=== PATIENT | male | born 1985 | race Two or more races ===

== ENCOUNTER 2017-10-14 15:48 | Emergency (ER) | payer OTHER | END 2017-10-14 18:28 | disposition left against medical advice (07) | LOC: M ED 15:48 | DX: Z53.29 Procedure and treatment not carried out because of patient's decision for other reasons (principal) ==

== ENCOUNTER → 2017-10-18 | Outpatient (REF) | payer OTHER ==
[2017-10-18 12:02] LABS: BASO # 0.1 10^3/uL (0.0-0.2); BASO % 0.7 % (0.0-1.0); EOS # 0.3 10^3/uL (0.0-0.50); EOS % 3.3 % (0.0-3.0); HEMATOCRIT 40.3 % (42.0-52.0); HEMOGLOBIN 13.9 g/dl (14.0-18.0); IMMATURE GRANULOCYTE % 0.2 % (0-0); LYMPH # 3.8 10^3/uL (1.5-4.5); LYMPH % 38.6 % (24.0-44.0); MEAN CORPUSCULAR HEMOGLOBIN 32.4 pg (27.0-33.0); MEAN CORPUSCULAR HGB CONC 34.5 g/dl (32.0-36.5); MEAN CORPUSCULAR VOLUME 93.9 fl (80.0-96.0); MONO # 1.1 10^3/uL (0.0-0.8); MONO % 11.6 % (0.0-5.0); NEUTROPHILS # 4.5 10^3/uL (1.8-7.7); NEUTROPHILS % 45.6 % (36.0-66.0); PLATELET COUNT, AUTOMATED 230 10^3/uL (150-450); RED BLOOD COUNT 4.29 10^6/uL (4.30-6.10); RED CELL DISTRIBUTION WIDTH 12.6 % (11.5-14.5); WHITE BLOOD COUNT 9.8 10^3/uL (4.0-10.0)
[2017-10-18 12:27] LABS: ALBUMIN 3.9 GM/DL (3.2-5.2); ALKALINE PHOSPHATASE 74 U/L (45-117); ALT/SGPT 14 U/L (12-78); ANION GAP 8 MEQ/L (8-16); AST/SGOT 13 U/L (7-37); BILIRUBIN,TOTAL 0.6 MG/DL (0.2-1.0); BLOOD UREA NITROGEN 10 MG/DL (7-18); CALCIUM LEVEL 8.4 MG/DL (8.5-10.1); CARBON DIOXIDE LEVEL 29 MEQ/L (21-32); CHLORIDE LEVEL 106 MEQ/L (98-107); CHOLESTEROL LEVEL 192 MG/DL (<200); CHOLESTEROL RISK RATIO 3.147 (<5); GLOMERULAR FILTRATION RATE > 60.0 (>60); GLUCOSE, FASTING 84 MG/DL (70-105); HDL CHOLESTEROL 61 MG/DL (>40); NON-HDL-C 131 MG/DL; SODIUM LEVEL 143 MEQ/L (136-145); TOTAL PROTEIN 6.9 GM/DL (6.4-8.2); TRIGLYCERIDES LEVEL 95 MG/DL (<150)
== END ==
LOC: M SFHCPLAZ 10:12
DX: Z00.00 Encounter for general adult medical examination without abnormal findings (principal); Z13.220 Encounter for screening for lipoid disorders

== ENCOUNTER → 2018-05-02 | Outpatient (REF) | payer OTHER ==
[2018-05-02 16:18] LABS: HEMATOCRIT 41.6 % (42.0-52.0); HEMOGLOBIN 14.8 g/dl (13.5-17.5); MEAN CORPUSCULAR HEMOGLOBIN 32.8 pg (27.0-33.0); MEAN CORPUSCULAR HGB CONC 35.6 g/dl (32.0-36.5); MEAN CORPUSCULAR VOLUME 92.2 fl (80.0-96.0); PLATELET COUNT, AUTOMATED 254 10^3/uL (150-450); RED BLOOD COUNT 4.51 10^6/uL (4.30-6.10); RED CELL DISTRIBUTION WIDTH 12.3 % (11.5-14.5); WHITE BLOOD COUNT 8.3 10^3/uL (4.0-10.0)
== END ==
LOC: M SFHCPLAZ 15:11
DX: D64.9 Anemia, unspecified (principal)

== ENCOUNTER → 2018-06-20 | Outpatient (CLI) | payer OTHER | LOC: M WUC 10:21 | DX: M25.561 Pain in right knee (principal); M25.512 Pain in left shoulder | CPT/HCPCS: 73030 ==

== ENCOUNTER → 2018-06-20 | Outpatient (REF) | payer OTHER ==
[2018-06-20 11:10] LABS: RHEUMATOID FACTOR QUANT < 10.0 IU/ML (<15.0)
[2018-06-20 11:10] LABS: C REACTIVE PROTEIN QUANTITATIV < 0.30 MG/DL (0.00-0.30)
[2018-06-20 11:34] LABS: ERYTHROCYTE SEDIMENTATION RATE 2 mm/hr (0-15)
[2018-06-21 12:59] LABS: ANTINUCLEAR ANTIBODIES DIRECT Negative (Negative)
[2018-06-23 00:06] LABS: CYCLIC CITRULLINATED PEPTIDE 47 units (0-19)
== END ==
LOC: M SFHCPLAZ 08:30
DX: M25.50 Pain in unspecified joint (principal)

== ENCOUNTER 2018-08-28 16:17 | Emergency (ER) | payer OTHER ==
[2018-08-28] MEDS: AUGMENTIN 875 MG TAB PO (17:43)
[2018-08-28] MEDS: NAPROXEN 250 MG TAB PO (17:44)
== END 2018-08-28 17:50 | disposition home or self-care (01) ==
LOC: M ED 16:17
DX: J02.9 Acute pharyngitis, unspecified (principal); J01.90 Acute sinusitis, unspecified
CPT/HCPCS: 87880

== ENCOUNTER → 2019-01-29 | Outpatient (CLI) | payer MEDICAID, OTHER ==
[~2019-01-29] MED LIST: AUGM875T28 PO; NAPR500T6; TIZANIDINE
--- NOTE | 2019-01-30 14:33 | REP ---
REASON: Testicular pain. PRIORS: None. The right testicle measures 5.1 x 2.2 x 3.2 cm and the left measures 5.2 x 2.1 x 3.3 cm. In the upper portion of the right testicle, there is an intratesticular calcification which measures 3 mm. There is no mass seen in association with this calcification. There is also an extra testicular calcification in the scrotal wall, which measures 4 mm. The vascular pattern is normal bilaterally. There are small bilateral hydroceles and an incidental 3 mm sized right-sided spermatocele. The right testicle RI is 0.56 and the left is 0.64. There is no evidence of a varicocele on either side. IMPRESSION: 1. Right-sided calcifications as described above. These could be secondary to old trauma. Since patient complained of right-sided pain, consider followup. 2. Other findings as described above. Electronically Signed by Gonzalo Glass DO 01/30/2019 04:37 P
== END ==
LOC: M RAD 17:08
PROVIDERS: ATTEND Family Medicine
DX: N50.811 Right testicular pain (principal); N50.89 Other specified disorders of the male genital organs

== ENCOUNTER 2019-04-15 10:04 | Emergency (ER) | payer MEDICAID, OTHER ==
[~2019-04-15] VITALS: Ht 182.9 cm; Wt 63.6 kg
[2019-04-15] MEDS ORDERED: ERYT1OIN26 (10:13)
[2019-04-15] MEDS ORDERED: NS 1,000 ML IV ONE (11:15)
[2019-04-15 11:40] LABS: BASO # 0.1 10^3/uL (0.0-0.2); EOS % 0.2 % (0.0-3.0); HEMATOCRIT 46.1 % (42.0-52.0); HEMOGLOBIN 16.2 g/dl (13.5-17.5); LYMPH # 2.1 10^3/uL (1.5-4.5); LYMPH % 23.6 % (24.0-44.0); MEAN CORPUSCULAR HEMOGLOBIN 32.5 pg (27.0-33.0); MEAN CORPUSCULAR HGB CONC 35.1 g/dl (32.0-36.5); MEAN CORPUSCULAR VOLUME 92.4 fl (80.0-96.0); MONO # 0.7 10^3/uL (0.0-0.8); MONO % 8.4 % (0.0-5.0); NEUTROPHILS # 5.8 10^3/uL (1.8-7.7); NEUTROPHILS % 66.5 % (36.0-66.0); PLATELET COUNT, AUTOMATED 261 10^3/uL (150-450); RED BLOOD COUNT 4.99 10^6/uL (4.30-6.10); WHITE BLOOD COUNT 8.7 10^3/uL (4.0-10.0)
[2019-04-15 12:25] LABS: ALBUMIN 4.5 GM/DL (3.2-5.2); ALT/SGPT 30 U/L (12-78); BILIRUBIN,TOTAL 0.7 MG/DL (0.2-1.0); BLOOD UREA NITROGEN 6 MG/DL (7-18); CALCIUM LEVEL 9.3 MG/DL (8.5-10.1); CARBON DIOXIDE LEVEL 21 MEQ/L (21-32); CHLORIDE LEVEL 100 MEQ/L (98-107); ETHYL ALCOHOL (ETHANOL) 0.015 % (0.000-0.010); GLOMERULAR FILTRATION RATE > 60.0 (>60); GLUCOSE, FASTING 87 MG/DL (70-100); POTASSIUM SERUM 3.8 MEQ/L (3.5-5.1); SODIUM LEVEL 134 MEQ/L (136-145); TOTAL PROTEIN 8.2 GM/DL (6.4-8.2)
[2019-04-15 13:29] VITALS: BP 140/90
--- NOTE | 2019-04-15 19:17 | ECGEPIP ---
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
== END 2019-04-15 13:37 | disposition home or self-care (01) ==
LOC: M ED 10:04
DX: R42 Dizziness and giddiness (principal); R25.1 Tremor, unspecified; F10.10 Alcohol abuse, uncomplicated
CPT/HCPCS: 80053; 85025; 93005; 96360; 99284; G0480

== ENCOUNTER → 2019-04-24 | Outpatient (REF) | payer OTHER ==
[~2019-04-24] MED LIST changes: +ERYT1OIN26
[2019-04-24 11:55] LABS: HEMATOCRIT 43.8 % (42.0-52.0); MEAN CORPUSCULAR HEMOGLOBIN 32.7 pg (27.0-33.0); MEAN CORPUSCULAR HGB CONC 34.2 g/dl (32.0-36.5); MEAN CORPUSCULAR VOLUME 95.4 fl (80.0-96.0); PLATELET COUNT, AUTOMATED 255 10^3/uL (150-450); RED BLOOD COUNT 4.59 10^6/uL (4.30-6.10); WHITE BLOOD COUNT 6.1 10^3/uL (4.0-10.0)
[2019-04-24 12:14] LABS: ALT/SGPT 23 U/L (12-78); BILIRUBIN,TOTAL 0.5 MG/DL (0.2-1.0); BLOOD UREA NITROGEN 8 MG/DL (7-18); CALCIUM LEVEL 8.8 MG/DL (8.5-10.1); CARBON DIOXIDE LEVEL 29 MEQ/L (21-32); CHLORIDE LEVEL 107 MEQ/L (98-107); CHOLESTEROL LEVEL 183 MG/DL (<200); CHOLESTEROL RISK RATIO 2.079 (<5); CREATININE FOR GFR 0.86 MG/DL (0.70-1.30); GLOMERULAR FILTRATION RATE > 60.0 (>60); GLUCOSE, FASTING 81 MG/DL (70-100); HDL CHOLESTEROL 88 MG/DL (>40); LDL CHOLESTEROL 80 MG/DL (<100); NON-HDL-C 95 MG/DL; POTASSIUM SERUM 4.2 MEQ/L (3.5-5.1); SODIUM LEVEL 141 MEQ/L (136-145); TOTAL PROTEIN 7.2 GM/DL (6.4-8.2); TRIGLYCERIDES LEVEL 75 MG/DL (<150)
== END ==
LOC: M SFHCPLAZ 08:54
PROVIDERS: ATTEND Family Medicine
DX: D64.9 Anemia, unspecified (principal); E78.5 Hyperlipidemia, unspecified

== ENCOUNTER → 2019-04-28 | Outpatient (CLI) | payer OTHER ==
--- NOTE | 2019-04-28 09:44 | REP ---
Clinical: EtOH abuse. Technique: Real time babcock scale ultrasound examination using curved array transducer. Findings: Liver and pancreas are normal in contour, size, echogenicity without focal hepatic or pancreatic lesion identified. Gallbladder is normal and without gallstones, wall thickening, or pericholecystic fluid. No biliary ductal dilatation is appreciated the common bile duct measures 2 mm diameter. The right kidney is normal in reniform shape without hydronephrosis and measures 11.8 x 4.2 x 4.2 cm. No ascites in the visualized right upper quadrant. Impression: Normal liver and right upper quadrant ultrasound.
== END ==
LOC: M WHC 08:42
PROVIDERS: ATTEND Family Medicine
DX: Z87.898 Personal history of other specified conditions (principal)

== ENCOUNTER 2019-10-03 10:58 | Emergency (ER) | payer OTHER ==
[~2019-10-03] VITALS: Ht 182.9 cm; Wt 68.2 kg
[2019-10-03] MEDS ORDERED: FLUO20CA19 PO (11:10)
[2019-10-03 12:54] VITALS: BP 152/83
[2019-10-03] MEDS ORDERED: KEFL500C17 PO (13:01)
== END 2019-10-03 13:26 | disposition home or self-care (01) ==
LOC: M ED 10:58 → EDBD 10:58 → M ED 13:26
DX: S61.101A Unspecified open wound of right thumb with damage to nail, initial encounter (principal); W26.9XXA Contact with unspecified sharp object(s), initial encounter; Y92.099 Unspecified place in other non-institutional residence as the place of occurrence of the external cause; Y93.9 Activity, unspecified; Y99.9 Unspecified external cause status; F41.9 Anxiety disorder, unspecified; F17.290 Nicotine dependence, other tobacco product, uncomplicated; Z79.899 Other long term (current) drug therapy

== ENCOUNTER 2020-06-12 11:34 | Emergency (ER) | payer OTHER ==
[~2020-06-12] VITALS: Ht 175.3 cm; Wt 66.3 kg
[2020-06-12 11:34] VITALS: BP 128/78
[~2020-06-12 11:34] MED LIST changes: -ERYT1OIN26; +ERYT5OIN25; +FLUO20CA22 PO; +KEFL500C17 PO
[2020-06-12] MEDS ORDERED: CLON1TAB8 PO (11:42)
[2020-06-12] MEDS ORDERED: PSEU30TA21 PO (11:42)
[2020-06-12] MEDS ORDERED: VENL50TA2 PO (11:42)
[2020-06-12] MEDS ORDERED: BUSP10TA PO (11:42)
[2020-06-12] MEDS ORDERED: FLUTISP INH (11:42)
[2020-06-12] MEDS ORDERED: OFLOSO OTIC (11:51)
== END 2020-06-12 12:03 | disposition home or self-care (01) ==
LOC: M ED 11:34
DX: H66.91 Otitis media, unspecified, right ear (principal); H60.91 Unspecified otitis externa, right ear; Z96.22 Myringotomy tube(s) status; F17.200 Nicotine dependence, unspecified, uncomplicated; Z79.899 Other long term (current) drug therapy

== ENCOUNTER → 2020-06-14 | Outpatient (REF) | payer OTHER ==
[~2020-06-14] MED LIST changes: +BUSP10TA PO; +CLON1TAB8 PO; +FLUTISP INH; +OFLOSO OTIC; +PSEU30TA21 PO; +VENL50TA2 PO
== END ==
LOC: M LAB REF 15:02
PROVIDERS: ATTEND Otolaryngology
DX: H65.23 Chronic serous otitis media, bilateral (principal)

== ENCOUNTER 2020-08-23 08:51 | Emergency (ER) | payer OTHER ==
[~2020-08-23] VITALS: Ht 182.9 cm; Wt 64.1 kg
[2020-08-23] MEDS ORDERED: VENL75CA47 PO (09:03)
[2020-08-23] MEDS ORDERED: ACETAMINOPHEN 500 MG TAB PO ONE (09:30)
--- NOTE | 2020-08-23 10:10 | REP ---
INDICATION: rib tenderness following injury, L lateral worst, prior PTX COMPARISON: None. TECHNIQUE: Frontal view of the chest with multiple views of the right and left hemithorax. (5 total views). FINDINGS: Frontal view of the chest demonstrates no acute cardiopulmonary process, contusion, effusion, or pneumothorax. Multiple views of the bilateral milton thoraces demonstrates no acute rib fracture/injury or pathology. IMPRESSION: Normal rib series. <Electronically signed by Carlos Rodriguez > 08/23/20 [id number]
[2020-08-23 10:27] VITALS: BP 137/90
== END 2020-08-23 10:52 | disposition home or self-care (01) ==
LOC: M ED 08:51
DX: S29.011A Strain of muscle and tendon of front wall of thorax, initial encounter (principal); R07.82 Intercostal pain; W19.XXXA Unspecified fall, initial encounter; Y92.099 Unspecified place in other non-institutional residence as the place of occurrence of the external cause; Y93.89 Activity, other specified; Y99.9 Unspecified external cause status; I10 Essential (primary) hypertension; F41.9 Anxiety disorder, unspecified; F32.9 Major depressive disorder, single episode, unspecified; F17.200 Nicotine dependence, unspecified, uncomplicated; F12.10 Cannabis abuse, uncomplicated; Z87.81 Personal history of (healed) traumatic fracture; Z87.09 Personal history of other diseases of the respiratory system; Z79.899 Other long term (current) drug therapy

== ENCOUNTER 2020-11-27 17:01 | Emergency (ER) | payer OTHER ==
[~2020-11-27] VITALS: Ht 182.9 cm; Wt 66.1 kg
[~2020-11-27 17:01] MED LIST changes: +VENL75CA47 PO
[2020-11-27 17:02] VITALS: BP 120/81
[2020-11-27] MEDS ORDERED: ANUC25SU PR (17:16)
[2020-11-27] MEDS ORDERED: EQ H1PAD EX (17:18)
[2020-11-27] MEDS ORDERED: COLA100C5 PO (17:19)
[2020-11-29] MEDS ORDERED: HYDR-3713 PO (17:36)
== END 2020-11-27 17:33 | disposition home or self-care (01) ==
LOC: M ED 17:01
DX: K64.4 Residual hemorrhoidal skin tags (principal); Z87.891 Personal history of nicotine dependence; Z79.899 Other long term (current) drug therapy

== ENCOUNTER 2021-02-25 09:37 | Emergency (ER) | payer OTHER ==
[~2021-02-25] VITALS: Ht 177.8 cm; Wt 63.6 kg
[~2021-02-25 09:37] MED LIST changes: +ANUC25SU PR; +COLA100C5 PO; +EQ H1PAD EX; +HYDR-3713 PO
[2021-02-25] MEDS ORDERED: KETOROLAC 30 MG/ML 1ML VIAL IM ONE (10:15)
--- NOTE | 2021-02-25 10:53 | REP ---
INDICATION: L wrist pain/ ulnar bruising/ttp COMPARISON: None. TECHNIQUE: AP, lateral, bilateral oblique views left wrist. FINDINGS: Evidence for prior orthopedic fixation of the scaphoid bone. Examination is otherwise essentially normal/age-appropriate. There is no evidence for acute fracture or dislocation. No subcutaneous emphysema or foreign body. IMPRESSION: Prior left scaphoid repair. No acute trauma/injury or pathology appreciated. <Electronically signed by Carlos Rodriguez > 02/25/21 [id number]
--- NOTE | 2021-02-25 10:55 | REP ---
INDICATION: L wrist/hand pain/ ulnar bruising/ttp COMPARISON: None. TECHNIQUE: AP, lateral, bilateral oblique views left hand. FINDINGS: Evidence for prior scaphoid repair and old healed 5th metacarpal bone fracture. Remainder of the examination is relatively normal/age-appropriate. No further acute pathology or trauma/injury pre shaded. IMPRESSION: No acute pathology or trauma/injury appreciated. <Electronically signed by Carlos Rodriguez > 02/25/21 [id number]
[2021-02-25 11:14] VITALS: BP 135/90
[2021-02-25] MEDS ORDERED: BOOSTRIX/ADACEL VACCINE (DIPHTH/PERTUSS/ACELL/TETANUS) 0.5ML SYR IM ONE (11:15)
== END 2021-02-25 11:32 | disposition home or self-care (01) ==
LOC: M ED 09:37
DX: S60.512A Abrasion of left hand, initial encounter (principal); S60.222A Contusion of left hand, initial encounter; S63.92XA Sprain of unspecified part of left wrist and hand, initial encounter; W22.09XA Striking against other stationary object, initial encounter; Y92.009 Unspecified place in unspecified non-institutional (private) residence as the place of occurrence of the external cause; Y93.89 Activity, other specified; Y99.8 Other external cause status; F41.9 Anxiety disorder, unspecified; F33.9 Major depressive disorder, recurrent, unspecified; F40.01 Agoraphobia with panic disorder; F17.200 Nicotine dependence, unspecified, uncomplicated; Z79.899 Other long term (current) drug therapy; Z98.890 Other specified postprocedural states
CPT/HCPCS: 73110; 73130; 90471; 90715; 96372; 99284; J1885

== ENCOUNTER 2022-02-26 10:17 | Emergency (ER) | payer OTHER ==
[~2022-02-26] VITALS: Ht 175.3 cm; Wt 59.1 kg
[2022-02-26] MEDS ORDERED: NS 1,000 ML IV ONE (10:25)
[2022-02-26] MEDS ORDERED: ONDANSETRON 4MG/2ML VIAL IV ONE (10:25)
[2022-02-26 10:50] LABS: BASO % 0.2 % (0.0-1.0); HEMATOCRIT 48.2 % (42.0-52.0); HEMOGLOBIN 17.4 g/dl (13.5-17.5); LYMPH # 1.1 10^3/uL (1.5-5.0); LYMPH % 7.6 % (24.0-44.0); MEAN CORPUSCULAR HEMOGLOBIN 33.7 pg (27.0-33.0); MEAN CORPUSCULAR HGB CONC 36.1 g/dl (32.0-36.5); MEAN CORPUSCULAR VOLUME 93.4 fl (80.0-96.0); MONO # 1.2 10^3/uL (0.0-0.8); MONO % 8.2 % (2.0-8.0); NEUTROPHILS # 12.4 10^3/uL (1.5-8.5); NEUTROPHILS % 83.5 % (36.0-66.0); PLATELET COUNT, AUTOMATED 257 10^3/uL (150-450); RED BLOOD COUNT 5.16 10^6/uL (4.30-6.10); WHITE BLOOD COUNT 14.8 10^3/uL (4.0-10.0)
[2022-02-26 11:30] LABS: ALBUMIN 4.1 GM/DL (3.2-5.2); ALT/SGPT 15 U/L (12-78); AMYLASE 29 U/L (25-115); BILIRUBIN,DIRECT 0.3 MG/DL (0.0-0.2); BILIRUBIN,TOTAL 1.1 MG/DL (0.2-1.0); BLOOD UREA NITROGEN 13 MG/DL (7-18); CALCIUM LEVEL 9.9 MG/DL (8.5-10.1); CARBON DIOXIDE LEVEL 26 MEQ/L (21-32); CHLORIDE LEVEL 95 MEQ/L (98-107); CREATININE FOR GFR 1.01 MG/DL (0.70-1.30); GLOMERULAR FILTRATION RATE > 60.0 (>60); GLUCOSE, FASTING 114 MG/DL (70-100); LIPASE 50 U/L (73-393); POTASSIUM SERUM 3.7 MEQ/L (3.5-5.1); SODIUM LEVEL 137 MEQ/L (136-145)
[2022-02-26] MEDS ORDERED: ONDA4TAB6 PO (12:30)
[2022-02-26] MEDS ORDERED: OMEP40CA4 PO (12:30)
[2022-02-26 12:46] VITALS: BP 121/78
== END 2022-02-26 13:00 | disposition home or self-care (01) ==
LOC: M ED 10:17
DX: K20.90 Esophagitis, unspecified without bleeding (principal); R11.10 Vomiting, unspecified; F41.9 Anxiety disorder, unspecified; F17.290 Nicotine dependence, other tobacco product, uncomplicated; F12.10 Cannabis abuse, uncomplicated; Z79.899 Other long term (current) drug therapy
CPT/HCPCS: 80048; 80076; 82150; 83605; 83690; 85025; 87040; 93041; 96361; 96374; 99284; J2405

== ENCOUNTER → 2022-03-09 | Outpatient (CLI) | payer OTHER ==
[~2022-03-09] MED LIST changes: +OMEP40CA4 PO; +ONDA4TAB6 PO
== END ==
LOC: M RAD 07:12
PROVIDERS: ATTEND Family Medicine
DX: R10.11 Right upper quadrant pain (principal)

== ENCOUNTER → 2022-03-28 | Outpatient (CLI) | payer OTHER ==
[~2022-03-28] MED LIST changes: +GASTROGRAFIN SOLUTION 30ML (Q9963) As Ordered ONE; +ISOVUE-370 76% 100ML VIAL As Ordered ONE
== END ==
LOC: M RAD 08:30
PROVIDERS: ATTEND Physician Assistant
DX: R11.2 Nausea with vomiting, unspecified (principal); R10.11 Right upper quadrant pain; K62.5 Hemorrhage of anus and rectum; R93.5 Abnormal findings on diagnostic imaging of other abdominal regions, including retroperitoneum
CPT/HCPCS: 74177; Q9963; Q9967

== ENCOUNTER → 2022-04-18 | Outpatient (REF) | payer OTHER ==
[~2022-04-18] MED LIST changes: -GASTROGRAFIN SOLUTION 30ML (Q9963) As Ordered ONE; -ISOVUE-370 76% 100ML VIAL As Ordered ONE
== END ==
LOC: M SFHCPLAZ 12:59
PROVIDERS: ATTEND Physician Assistant
DX: R07.0 Pain in throat (principal)

== ENCOUNTER → 2022-05-13 | Outpatient (CLI) | payer OTHER | LOC: M LABSMTC 10:26 | PROVIDERS: ATTEND Anesthesiology | DX: Z11.52 Encounter for screening for COVID-19 (principal) ==

== ENCOUNTER 2022-05-16 07:39 | Day surgery (SDC) | payer OTHER ==
[~2022-05-16] VITALS: Ht 175.3 cm; Wt 61.1 kg
[~2022-05-16 07:39] MED LIST changes: +NS 1,000 ML IV ONE
[2022-05-16] MEDS ORDERED: MIDAZOLAM INJ 2MG/2ML VIAL (J2250 PER 1MG) As Ordered ONE (08:19)
[2022-05-16] MEDS ORDERED: propofoL 200 MG/20 ML VIAL As Ordered ONE (08:19)
[2022-05-16] MEDS ORDERED: LIDOCAINE 2% 100MG/5ML SDV (FOR ANES.) As Ordered ONE (08:20)
[2022-05-16] MEDS ORDERED: fentaNYL 100 MCG/2 ML INJECTION As Ordered ONE (08:46)
[2022-05-16 09:40] VITALS: BP 138/84
== END 2022-05-16 09:49 | disposition home or self-care (01) ==
LOC: M OPP 07:39
PROVIDERS: ATTEND Surgery
DX: K63.5 Polyp of colon (principal); K64.0 First degree hemorrhoids; K92.1 Melena; K22.89 Other specified disease of esophagus; K29.70 Gastritis, unspecified, without bleeding; K92.0 Hematemesis; F32.9 Major depressive disorder, single episode, unspecified; F41.9 Anxiety disorder, unspecified; F40.00 Agoraphobia, unspecified; F60.0 Paranoid personality disorder; N40.0 Benign prostatic hyperplasia without lower urinary tract symptoms; N41.0 Acute prostatitis; F17.200 Nicotine dependence, unspecified, uncomplicated; Z79.899 Other long term (current) drug therapy
CPT/HCPCS: 43239; 45380; 88305; J2250; J3010

== ENCOUNTER 2022-08-03 21:53 | Emergency (ER) | payer OTHER ==
[~2022-08-03] VITALS: Ht 182.9 cm; Wt 69.1 kg
[~2022-08-03 21:53] MED LIST changes: -NS 1,000 ML IV ONE
[2022-08-03 22:27] LABS: MEAN CORPUSCULAR HEMOGLOBIN 33.4 pg (27.0-33.0); MEAN CORPUSCULAR VOLUME 95.5 fl (80.0-96.0); PLATELET COUNT, AUTOMATED 238 10^3/uL (150-450); RED BLOOD COUNT 4.19 10^6/uL (4.30-6.10); WHITE BLOOD COUNT 8.9 10^3/uL (4.0-10.0)
[2022-08-03 22:58] LABS: AMPHETAMINES LEVEL URINE NEGATIVE (NEGATIVE); BARBITURATES URINE NEGATIVE (NEGATIVE); BENZODIAZEPINES URINE NEGATIVE (NEGATIVE); CANNABINOIDS URINE POSITIVE (NEGATIVE); COCAINE METABOLITE URINE POSITIVE (NEGATIVE); METHADONE URINE NEGATIVE (NEGATIVE); OPIATES URINE NEGATIVE (NEGATIVE); PHENCYCLIDINE URINE NEGATIVE (NEGATIVE)
[2022-08-03 23:01] LABS: RSV AMPLIFICATION NEGATIVE (NEGATIVE)
[2022-08-03 23:09] LABS: ACETAMINOPHEN LEVEL < 2.0 UG/ML (10.0-30.0); ALBUMIN 3.8 GM/DL (3.2-5.2); ALT/SGPT 29 U/L (12-78); BILIRUBIN,DIRECT < 0.1 MG/DL (0.0-0.2); BILIRUBIN,TOTAL 0.2 MG/DL (0.2-1.0); BLOOD UREA NITROGEN 7 MG/DL (7-18); CALCIUM LEVEL 8.4 MG/DL (8.5-10.1); CARBON DIOXIDE LEVEL 24 MEQ/L (21-32); CHLORIDE LEVEL 109 MEQ/L (98-107); CREATININE FOR GFR 0.91 MG/DL (0.70-1.30); GLOMERULAR FILTRATION RATE > 60.0 (>60); GLUCOSE, FASTING 101 MG/DL (70-100); POTASSIUM SERUM 3.5 MEQ/L (3.5-5.1); SALICYLATE LEVEL 4.2 MG/DL (5.0-30.0); SODIUM LEVEL 140 MEQ/L (136-145); TOTAL PROTEIN 7.3 GM/DL (6.4-8.2)
[2022-08-04 06:41] VITALS: BP 118/71
== END 2022-08-04 11:01 | disposition home or self-care (01) ==
LOC: M ED 21:53
DX: F10.129 Alcohol abuse with intoxication, unspecified (principal); F32.A Depression, unspecified; F41.9 Anxiety disorder, unspecified; F17.210 Nicotine dependence, cigarettes, uncomplicated; Z79.899 Other long term (current) drug therapy

== ENCOUNTER → 2022-10-18 | Outpatient (CLI) | payer OTHER ==
[2022-10-18 18:58] LABS: ALBUMIN 3.8 G/DL (3.2-5.2); ALKALINE PHOSPHATASE 113 U/L (46-116); ALT/SGPT 22 U/L (7.0-40); AST/SGOT 34 U/L (<34); BILIRUBIN,TOTAL 0.7 MG/DL (0.3-1.2); BLOOD UREA NITROGEN < 5 MG/DL (9-23); CALCIUM LEVEL 8.5 MG/DL (8.5-10.1); CARBON DIOXIDE LEVEL 31 MMOL/L (20-31); CHLORIDE LEVEL 101 MMOL/L (98-107); CREATININE FOR GFR 0.77 MG/DL (0.70-1.30); GLOMERULAR FILTRATION RATE > 60.0 (>60); GLUCOSE, FASTING 80 MG/DL (60-100); SODIUM LEVEL 137 MMOL/L (136-145); TOTAL PROTEIN 7.2 G/DL (5.7-8.2)
== END ==
LOC: M PLALAB 15:51
PROVIDERS: ATTEND Physician Assistant
DX: Z87.898 Personal history of other specified conditions (principal)

== ENCOUNTER → 2023-01-10 | Outpatient (REF) | payer OTHER ==
[~2023-01-10] MED LIST changes: +FLUT50SP17 INH; -FLUTISP INH
== END ==
LOC: M SFHCDERM 18:09
PROVIDERS: ATTEND Physician Assistant
DX: D49.2 Neoplasm of unspecified behavior of bone, soft tissue, and skin (principal)

== ENCOUNTER 2023-05-02 21:28 | Inpatient (IN) | payer OTHER ==
[~2023-05-02] VITALS: Ht 175.3 cm; Wt 53.5 kg
[2023-05-02 22:31] LABS: ETHYL ALCOHOL (ETHANOL) 0.295 % (0.000-0.010)
[2023-05-02 22:32] LABS: SALICYLATE LEVEL < 3.0 MG/DL (<30)
[2023-05-02 22:33] LABS: ACETAMINOPHEN LEVEL < 2.0 UG/ML (10.0-20.0); ALBUMIN 4.3 G/DL (3.2-5.2); ALKALINE PHOSPHATASE 110 U/L (46-116); ALT/SGPT 12 U/L (7.0-40); AST/SGOT 22 U/L (<34); BILIRUBIN,DIRECT 0.2 MG/DL (<0.4); BILIRUBIN,TOTAL 0.6 MG/DL (0.3-1.2); BLOOD UREA NITROGEN 5 MG/DL (9-23); CALCIUM LEVEL 8.7 MG/DL (8.5-10.1); CARBON DIOXIDE LEVEL 25 MMOL/L (20-31); CHLORIDE LEVEL 103 MMOL/L (98-107); CREATININE FOR GFR 0.91 MG/DL (0.70-1.30); GLOMERULAR FILTRATION RATE > 60.0 (>60); GLUCOSE, FASTING 92 MG/DL (60-100); POTASSIUM SERUM 3.5 MMOL/L (3.5-5.1); SODIUM LEVEL 142 MMOL/L (136-145); TOTAL PROTEIN 7.7 G/DL (5.7-8.2)
[2023-05-02 22:34] LABS: HEMATOCRIT 49.4 % (42.0-52.0); MEAN CORPUSCULAR HEMOGLOBIN 32.3 pg (27.0-33.0); MEAN CORPUSCULAR VOLUME 92.3 fl (80.0-96.0); PLATELET COUNT, AUTOMATED 372 10^3/uL (150-450); RED BLOOD COUNT 5.35 10^6/uL (4.30-6.10); WHITE BLOOD COUNT 13.6 10^3/uL (4.0-10.0)
[2023-05-02 22:35] LABS: THYROID STIMULATING HORMONE 1.173 uIU/ML (0.55-4.78)
[2023-05-02 22:39] LABS: HEMOGLOBIN 17.3 g/dl (13.5-17.5)
[2023-05-02 22:40] LABS: AMPHETAMINES LEVEL URINE NEGATIVE (NEGATIVE); BARBITURATES URINE NEGATIVE (NEGATIVE); BENZODIAZEPINES URINE NEGATIVE (NEGATIVE); COCAINE METABOLITE URINE NEGATIVE (NEGATIVE); METHADONE URINE NEGATIVE (NEGATIVE); OPIATES URINE NEGATIVE (NEGATIVE); PHENCYCLIDINE URINE NEGATIVE (NEGATIVE)
[2023-05-02 22:41] LABS: CANNABINOIDS URINE POSITIVE (NEGATIVE)
[2023-05-02] MEDS ORDERED: ONDA-195 PO (23:42)
[2023-05-02] MEDS ORDERED: VENL75CA2 PO (23:42)
[2023-05-02] MEDS ORDERED: FLON1SPR NARES (23:42)
[2023-05-02] MEDS ORDERED: BUSP10TA PO (23:42)
[2023-05-02] MEDS ORDERED: OMEP40CA5 PO (23:42)
[2023-05-02] MEDS ORDERED: NALT50TA4 PO (23:42)
[2023-05-02] MEDS ORDERED: CLON1TAB8 PO (23:42)
[2023-05-02] MEDS ORDERED: HOME MED LIST COMPLETE! XX SCH (23:45)
[2023-05-03] MEDS ORDERED: NALTREXONE 50 MG TAB PO ONE (08:05)
[2023-05-03] MEDS ORDERED: VENLAFAXINE **XR** 75MG CAPSULE PO ONE (08:05)
[2023-05-03] MEDS ORDERED: busPIRone 10 MG TAB PO ONE ×2 (08:05→13:10)
[2023-05-03] MEDS ORDERED: clonazePAM 0.5 MG TAB PO ONE (08:05)
[2023-05-03] MEDS ORDERED: PILL CUTTER 1 EACH XX PRN (08:15)
[2023-05-03] MEDS ORDERED: diphenhydrAMINE 25MG CAP PO PRN (13:25)
[2023-05-03] MEDS ORDERED: MAALOX 30 ML SUSP *UDC PO PRN (13:25)
[2023-05-03] MEDS ORDERED: MOM 30ML SUSPENSION UDC PO PRN (13:25)
[2023-05-03] MEDS ORDERED: traZODone 50 MG TAB PO PRN (13:25)
[2023-05-03] MEDS ORDERED: IBUPROFEN 400MG TAB PO PRN (13:25)
[2023-05-03] MEDS ORDERED: ACETAMINOPHEN TAB 650MG DOSE (2X325MG) PO PRN (13:25)
[2023-05-03] MEDS ORDERED: LORazepam 2 MG TAB PO PRN (15:05)
[2023-05-03 16:00] VITALS: BP 127/89; TEMP 97.7; O2SAT 97
[2023-05-03] MEDS: FOLIC ACID 1MG TAB PO SCH (16:26)
[2023-05-03] MEDS: MULTIVITAMINS/MINERALS THERAP 1 TAB PO SCH (16:27)
[2023-05-03 18:49] VITALS: BP 140/100; TEMP 97.6; O2SAT 98
[2023-05-03] MEDS ORDERED: ONDANSETRON 4MG TAB PO PRN (20:55)
[2023-05-03] MEDS: FLUTICASONE PROP 0.05% NASAL SPRAY 16 GM (FLONASE) NARES SCH (21:00)
[2023-05-03] MEDS: busPIRone 10 MG TAB PO SCH (21:09)
[2023-05-03] MEDS: clonazePAM 1 MG TAB PO SCH (21:10)
[2023-05-03] MEDS: THIAMINE 100 MG TAB PO SCH (21:10)
[2023-05-03] MEDS: NALTREXONE 50 MG TAB PO SCH (21:10)
[2023-05-04 05:22] VITALS: BP 140/80
[2023-05-04 06:47] VITALS: BP 117/73; TEMP 97.3; O2SAT 100
[2023-05-04 08:34] LABS: HEMOGLOBIN 16.4 g/dl (13.5-17.5); MEAN CORPUSCULAR HEMOGLOBIN 32.2 pg (27.0-33.0); MEAN CORPUSCULAR HGB CONC 34.2 g/dl (32.0-36.5); MEAN CORPUSCULAR VOLUME 94.1 fl (80.0-96.0); PLATELET COUNT, AUTOMATED 306 10^3/uL (150-450)
[2023-05-04] MEDS ORDERED: VENLAFAXINE **XR** 75MG CAPSULE PO SCH (09:00)
[2023-05-04] MEDS: MULTIVITAMINS/MINERALS THERAP 1 TAB PO SCH (09:22)
[2023-05-04] MEDS: busPIRone 10 MG TAB PO SCH ×3 (09:22→20:53)
[2023-05-04] MEDS: FOLIC ACID 1MG TAB PO SCH (09:23)
[2023-05-04] MEDS: THIAMINE 100 MG TAB PO SCH ×2 (09:23→20:53)
[2023-05-04] MEDS: NALTREXONE 50 MG TAB PO SCH ×2 (09:24→20:53)
[2023-05-04] MEDS: clonazePAM 1 MG TAB PO SCH (09:24)
[2023-05-04 14:50] VITALS: BP 139/89
[2023-05-04 16:18] VITALS: BP 139/89; TEMP 98; O2SAT 100
[2023-05-04] MEDS: clonazePAM 0.5 MG TAB PO SCH (20:53)
[2023-05-04] MEDS: FLUTICASONE PROP 0.05% NASAL SPRAY 16 GM (FLONASE) NARES SCH (21:00)
[2023-05-04] MEDS: NICOTINE 21MG/24HR 1 EA TRANSDERMAL TD PRN (21:19)
[2023-05-05] VITALS: BP 139/89
[2023-05-05 06:37] VITALS: BP 131/65; TEMP 96.8; O2SAT 98
[2023-05-05 08:00] VITALS: BP 131/65
[2023-05-05] MEDS: clonazePAM 0.5 MG TAB PO SCH ×2 (08:13→21:03)
[2023-05-05] MEDS: busPIRone 10 MG TAB PO SCH ×3 (08:13→21:04)
[2023-05-05] MEDS: FOLIC ACID 1MG TAB PO SCH (08:13)
[2023-05-05] MEDS: MULTIVITAMINS/MINERALS THERAP 1 TAB PO SCH (08:13)
[2023-05-05] MEDS: NALTREXONE 50 MG TAB PO SCH ×2 (08:13→21:04)
[2023-05-05] MEDS: THIAMINE 100 MG TAB PO SCH (08:13)
[2023-05-05] MEDS: VENLAFAXINE **XR** 75MG CAPSULE PO SCH (08:14)
[2023-05-05] MEDS ORDERED: FLUTICASONE PROP 0.05% NASAL SPRAY 16 GM (FLONASE) NARES PRN (13:55)
[2023-05-05 16:18] VITALS: BP 120/73; TEMP 98.4; O2SAT 94
[2023-05-05] MEDS: NICOTINE 21MG/24HR 1 EA TRANSDERMAL TD PRN (21:03)
[2023-05-06 06:21] VITALS: BP 129/69; TEMP 97.5; O2SAT 99
[2023-05-06] MEDS: clonazePAM 0.5 MG TAB PO SCH ×2 (08:21→20:14)
[2023-05-06] MEDS: NALTREXONE 50 MG TAB PO SCH ×2 (08:21→20:14)
[2023-05-06] MEDS: MULTIVITAMINS/MINERALS THERAP 1 TAB PO SCH (08:22)
[2023-05-06] MEDS: FOLIC ACID 1MG TAB PO SCH (08:22)
[2023-05-06] MEDS: busPIRone 10 MG TAB PO SCH ×3 (08:22→20:14)
[2023-05-06] MEDS: VENLAFAXINE **XR** 75MG CAPSULE PO SCH (08:22)
[2023-05-06] MEDS: NICOTINE 21MG/24HR 1 EA TRANSDERMAL TD PRN (08:24)
[2023-05-06 18:00] VITALS: BP 121/90; TEMP 97; O2SAT 99
[2023-05-07 06:25] VITALS: BP 119/67; TEMP 97.5; O2SAT 99
[2023-05-07] MEDS ORDERED: VENL75CA47 PO (08:12)
[2023-05-07] MEDS ORDERED: TRAZ-252 PO (08:12)
[2023-05-07] MEDS: clonazePAM 0.5 MG TAB PO SCH (08:15)
[2023-05-07] MEDS: FOLIC ACID 1MG TAB PO SCH (08:15)
[2023-05-07] MEDS: MULTIVITAMINS/MINERALS THERAP 1 TAB PO SCH (08:15)
[2023-05-07] MEDS: busPIRone 10 MG TAB PO SCH (08:15)
[2023-05-07] MEDS: NALTREXONE 50 MG TAB PO SCH (08:15)
[2023-05-07] MEDS: VENLAFAXINE **XR** 75MG CAPSULE PO SCH (08:15)
== END 2023-05-07 12:05 | disposition home or self-care (01) | DRG 755 ==
LOC: M ED 21:28 → M ED INP 05-03 13:25 → M PSY 05-03 15:08
PROVIDERS: ADMIT Student in an Organized Health Care Education/Training Program; ATTEND Student in an Organized Health Care Education/Training Program
DX: F43.10 Post-traumatic stress disorder, unspecified (principal); E78.5 Hyperlipidemia, unspecified; F43.23 Adjustment disorder with mixed anxiety and depressed mood; Z79.899 Other long term (current) drug therapy

== ENCOUNTER → 2023-05-09 | Outpatient (CLI) | payer OTHER ==
[~2023-05-09] MED LIST changes: +FLON1SPR NARES; +NALT50TA4 PO; +OMEP40CA5 PO; +ONDA-195 PO; +TRAZ-252 PO; +VENL75CA2 PO
== END ==
LOC: M OUTALCOH 08:35
PROVIDERS: ATTEND Psychiatry & Neurology Psychiatry
DX: Z03.89 Encounter for observation for other suspected diseases and conditions ruled out (principal)

== ENCOUNTER 2023-05-28 15:41 | Outpatient (RCR) | payer OTHER | END 2023-05-30 | LOC: M OUTALCOH 15:41 | PROVIDERS: ATTEND Psychiatry & Neurology Psychiatry | DX: F10.20 Alcohol dependence, uncomplicated (principal); F12.10 Cannabis abuse, uncomplicated; Z72.0 Tobacco use ==

== ENCOUNTER 2023-07-11 12:56 | Outpatient (RCR) | payer OTHER | END 2023-07-30 | LOC: M OUTALCOH 12:56 | PROVIDERS: ATTEND Psychiatry & Neurology Psychiatry | DX: F10.20 Alcohol dependence, uncomplicated (principal); F12.10 Cannabis abuse, uncomplicated; Z72.0 Tobacco use ==

== ENCOUNTER 2023-09-10 13:00 | Outpatient (RCR) | payer OTHER ==
[~2023-09-10 13:00] MED LIST changes: -FLUT50SP17 INH; +FLUTISP INH
== END 2023-09-29 ==
LOC: M OUTALCOH 13:00
PROVIDERS: ATTEND Psychiatry & Neurology Psychiatry
DX: F10.20 Alcohol dependence, uncomplicated (principal); F12.10 Cannabis abuse, uncomplicated; Z72.0 Tobacco use